=== PATIENT | male | born 1970 | race Caucasian/White ===

== ENCOUNTER 2020-12-06 02:38 | Observation (INO) | payer BC, OTHER ==
--- NOTE | 2020-12-06 03:24 | XR ---
EXAM: XR Chest, 2 Views CLINICAL HISTORY: ITS.REASON XR Reason: difficulty breathing TECHNIQUE: Frontal and lateral views of the chest. COMPARISON: 11/02/2017 FINDINGS: Lungs: Unremarkable. No consolidation. Pleural space: Unremarkable. No pneumothorax. Heart: Unremarkable. No cardiomegaly. Mediastinum: Unremarkable. Bones/joints: Unremarkable. IMPRESSION: No evidence of acute cardiopulmonary disease.
[2020-12-06 03:30] LABS: Basophils % (A) 0 %; Eosinophils # (A) 0.1 k/uL (0-0.7); Eosinophils % (A) 1 %; HCT 44.2 % (39.0-53.0); HGB 14.5 gm/dL (13.0-17.5); Lymphocytes % (A) 6 %; MCH 29.3 pg (25.0-35.0); MCHC 32.9 g/dL (31.0-37.0); MCV 89.2 fL (80.0-100.0); Mean Platelet Volume 7.3; Monocytes # (A) 0.5 k/uL (0-1.0); Monocytes % (A) 3 %; Neutrophils # (A) 13.3 k/uL (1.3-7.7); Neutrophils % (A) 89 %; Platelet Count 292 k/uL (150-450); RBC 4.96 m/uL (4.30-5.90); RDW 14.5 % (11.5-15.5); WBC 14.9 k/uL (3.8-10.6)
[2020-12-06 03:38] LABS: Potassium 3.9 mmol/L (3.5-5.1)
[2020-12-06 03:39] LABS: Albumin 4.4 g/dL (3.5-5.0); Calcium 9.9 mg/dL (8.4-10.2); Total Bilirubin 0.5 mg/dL (0.2-1.3); Total Protein 7.9 g/dL (6.3-8.2)
--- NOTE | 2020-12-06 03:48 | ED ---
SOB HPI - General Chief Complaint: Shortness of Breath Stated Complaint: anxiety Time Seen by Provider: 12/06/20 02:52 Source: patient, EMS Mode of arrival: EMS - History of Present Illness Initial Comments: This patient is a 50-year-old man who presents to be evaluated for dyspnea. The patient states that he had been watching Super Bowl then afterward said gone to leave and on entering cold air he started experiencing shortness of breath. The patient states he was feeling anxious as well and was not sure if this was anxiety or something else. He states he also had been exposed possibly to coronavirus. Finally, patient notes that he did have a THC edible, and was unce rtain of this may have caused onset of symptoms. He has not had fever or chills. No cough or congestion. No chest pain. Please see the review of systems. Patient states that he did spontaneously start to feel better after the ambulance had arrived, and he feels he is back to his baseline now. MD Complaint: shortness of breath -: minutes(s) Severity scale (1-10): 0 Consistency: now resolved Improves With: nothing Worsens With: nothing Known History Of: asthma Associated Symptoms: denies other symptoms Treatments Prior to Arrival: none - Related Data Home Oxygen Therapy: No Home Medications Medication Instructions Recorded Confirmed Albuterol Sulfate [Proair Hfa] 1 - 2 puff INHALATION RT-Q6H PRN 12/06/20 12/06/20 Budesonide/Formoterol Fumarate 1 puff INHALATION RT-BID 12/06/20 12/06/20 [Symbicort 160-4.5 Mcg Inhaler] amLODIPine BESYLATE/BENAZEPRIL 1 cap PO DAILY 12/06/20 12/06/20 [Lotrel 10-40 MG] Previous Rx's Medication Instructions Recorded Azithromycin [Zithromax] 500 mg PO HS 2 Days #2 tab 12/07/20 predniSONE [Deltasone] 40 mg PO DAILY 3 Days #6 tab 12/07/20 Allergies Allergy/AdvReac Type Severity Reaction Status Date / Time No Known Allergies Allergy Verified 12/06/20 07:00 Review of Systems ROS Statement: Those systems with pertinent positive or pertinent negative responses have been documented in the HPI. ROS Other: All systems not noted in ROS Statement are negative. Constitutional: Denies: fever, chills ENT: Denies: congestion Respiratory: Reports: dyspnea. Denies: cough, wheezes, hemoptysis Cardiovascular: Denies: chest pain, palpitations, edema, syncope Gastrointestinal: Denies: abdominal pain, vomiting, diarrhea Genitourinary: Denies: dysuria Musculoskeletal: Denies: back pain Skin: Denies: rash Neurological: Denies: headache, weakness Psychiatric: Reports: anxiety Past Medical History Past Medical History: Asthma Additional Past Medical History / Comment(s): back pain History of Any Multi-Drug Resistant Organisms: None Reported Past Surgical History: No Surgical Hx Reported Past Psychological History: No Psychological Hx Reported Smoking Status: Former smoker Past Alcohol Use History: Occasional Past Drug Use History: None Reported General Exam General appearance: alert, in no apparent distress Head exam: Present: atraumatic, normocephalic Eye exam: Present: normal appearance ENT exam: Present: normal oropharynx Neck exam: Present: normal inspection, full ROM Respiratory exam: Present: normal lung sounds bilaterally. Absent: respiratory distress, wheezes, rales, rhonchi, stridor, accessory muscle use, decreased breath sounds Cardiovascular Exam: Present: regular rate, normal rhythm, normal heart sounds. Absent: systolic murmur, diastolic murmur, rubs, gallop GI/Abdominal exam: Present: soft. Absent: distended, tenderness, guarding, rebound Extremities exam: Present: normal inspection, normal capillary refill. Absent: pedal edema, calf tenderness Back exam: Present: normal inspection. Absent: CVA tenderness (R), CVA tenderness (L) Neurological exam: Present: alert Skin exam: Present: warm, dry, intact, normal color. Absent: rash Course Vital Signs 12/06/20 12/06/20 12/06/20 02:44 02:47 04:18 Temperature 98.0 F Pulse Rate 106 H 85 Respiratory 18 18 16 Rate Blood Pressure 151/89 103/76 O2 Sat by Pulse 96 97 Oximetry 12/06/20 12/06/20 12/06/20 04:47 05:00 05:26 Temperature 97.7 F Pulse Rate 83 83 Respiratory 18 18 Rate Blood Pressure 125/86 127/75 O2 Sat by Pulse 95 93 L Oximetry Medical Decision Making - Medical Decision Making Discussed results with the patient, including the d-dimer. Patient declined to have further testing as he is feeling back at baseline with no symptoms. Again I suspect that the likelihood of PE is low given his lack of symptoms at the moment, but discussed appropriate follow-up as well as return parameters. As patient was being discharged, he found that he was becoming quite dyspneic after only 30 yards of walking. In light of this, will admit patient for telemetry monitoring, serial cardiac enzymes and cardiology consultation for possible exertional angina - Lab Data Result diagrams: 12/07/20 05:02 12/07/20 05:02 Lab Results 12/06/20 12/06/20 12/06/20 Range/Units 03:19 03:19 03:19 WBC 14.9 H (3.8-10.6) k/uL RBC 4.96 (4.30-5.90) m/uL Hgb 14.5 (13.0-17.5) gm/dL Hct 44.2 (39.0-53.0) % MCV 89.2 (80.0-100.0) fL MCH 29.3 (25.0-35.0) pg MCHC 32.9 (31.0-37.0) g/dL RDW 14.5 (11.5-15.5) % Plt Count 292 (150-450) k/uL MPV 7.3 Neutrophils % 89 % Lymphocytes % 6 % Monocytes % 3 % Eosinophils % 1 % Basophils % 0 % Neutrophils # 13.3 H (1.3-7.7) k/uL Lymphocytes # 1.0 (1.0-4.8) k/uL Monocytes # 0.5 (0-1.0) k/uL Eosinophils # 0.1 (0-0.7) k/uL Basophils # 0.0 (0-0.2) k/uL D-Dimer (<0.60) mg/L FEU Sodium 131 L (137-145) mmol/L Potassium 3.9 (3.5-5.1) mmol/L Chloride 96 L (98-107) mmol/L Carbon Dioxide 19 L (22-30) mmol/L Anion Gap 16 mmol/L BUN 20 (9-20) mg/dL Creatinine 1.14 (0.66-1.25) mg/dL Est GFR (CKD-EPI)AfAm 86 (>60 ml/min/1.73 sqM) Est GFR (CKD-EPI)NonAf 75 (>60 ml/min/1.73 sqM) Glucose 213 H (74-99) mg/dL Calcium 9.9 (8.4-10.2) mg/dL Total Bilirubin 0.5 (0.2-1.3) mg/dL AST 29 (17-59) U/L ALT 27 (4-49) U/L Alkaline Phosphatase 127 H (38-126) U/L Troponin I <0.012 (0.000-0.034) ng/mL NT-Pro-B Natriuret Pep pg/mL Total Protein 7.9 (6.3-8.2) g/dL Albumin 4.4 (3.5-5.0) g/dL Coronavirus (PCR) (Not Detected) 12/06/20 12/06/20 12/06/20 Range/Units 03:19 03:19 03:19 WBC (3.8-10.6) k/uL RBC (4.30-5.90) m/uL Hgb (13.0-17.5) gm/dL Hct (39.0-53.0) % MCV (80.0-100.0) fL MCH (25.0-35.0) pg MCHC (31.0-37.0) g/dL RDW (11.5-15.5) % Plt Count (150-450) k/uL MPV Neutrophils % % Lymphocytes % % Monocytes % % Eosinophils % % Basophils % % Neutrophils # (1.3-7.7) k/uL Lymphocytes # (1.0-4.8) k/uL Monocytes # (0-1.0) k/uL Eosinophils # (0-0.7) k/uL Basophils # (0-0.2) k/uL D-Dimer 0.64 H (<0.60) mg/L FEU Sodium (137-145) mmol/L Potassium (3.5-5.1) mmol/L Chloride (98-107) mmol/L Carbon Dioxide (22-30) mmol/L Anion Gap mmol/L BUN (9-20) mg/dL Creatinine (0.66-1.25) mg/dL Est GFR (CKD-EPI)AfAm (>60 ml/min/1.73 sqM) Est GFR (CKD-EPI)NonAf (>60 ml/min/1.73 sqM) Glucose (74-99) mg/dL Calcium (8.4-10.2) mg/dL Total Bilirubin (0.2-1.3) mg/dL AST (17-59) U/L ALT (4-49) U/L Alkaline Phosphatase (38-126) U/L Troponin I (0.000-0.034) ng/mL NT-Pro-B Natriuret Pep 48 pg/mL Total Protein (6.3-8.2) g/dL Albumin (3.5-5.0) g/dL Coronavirus (PCR) Not Detected (Not Detected) - EKG Data -: EKG Interpreted by Co EKG shows normal: sinus rhythm, axis (Normal), intervals (Normal), QRS complexes (Normal), ST-T waves (Normal) Rate: normal (Rate 91 bpm) Interpretation: other (Possible old septal infarct.) Disposition Clinical Impression: Dyspnea Disposition: ADMITTED IP TO THIS [facility] Condition: Good Is patient prescribed a controlled substance at d/c from ED?: No
[2020-12-06] MEDS ORDERED: NITROGLYCERIN SL TABS 0.4 MG TAB SUBLINGUAL PRN (04:46)
[2020-12-06] MEDS ORDERED: ENOXAPARIN 150 MG/ML SYRINGE SQ ONE (05:00)
--- NOTE | 2020-12-06 09:09 | CT ---
EXAMINATION TYPE: CT angio chest DATE OF EXAM: 12/06/2020 COMPARISON: None HISTORY: Dyspnea, elevated d-dimer, asthma CT DLP: 1055.7 mGycm CONTRAST: CT chest with contrast and 3D reconstruction with MIP imaging is performed with IV Contrast, patient injected with 100 mL of Isovue 370. Contrast-enhanced CT of the chest was performed through the course of the pulmonary arteries with rebeca g and mediastinal window settings submitted. 3D reconstruction with MIP imaging was also performed. PULMONARY ARTERIES: Examination is limited given the timing of the contrast bolus. I do not see evide nce for a large central embolus over the examination is limited with regards to tube exclusion of pul monary embolism in second third and fourth order branches. LUNGS: The lungs are clear and free of infiltrate. No evidence for atelectasis. No pulmonary nodule or mass is detected. No pleural effusion. MEDIASTINUM: Thoracic aorta is of normal caliber,however, evaluation is limited given timing of the contrast bolus. If there is concern for thoracic aortic pathology consider RICKI. Correlate clinicall y . The heart is not enlarged. No evidence for mediastinal mass. No mediastinal lymph nodes greater than 1cm. HILAR STRUCTURES: No evidence for mass. No hilar lymph nodes greater than 1 cm. UPPER ABDOMEN: No significant abnormality is seen. IMPRESSION: 1. Limited evaluation for pulmonary embolism. I do not see evidence for large central embolus at thi s time.
[2020-12-06] MEDS: amLODIPine 10 MG TAB PO SCH (09:57)
[2020-12-06] MEDS: lisinopriL 20 MG TAB PO SCH (09:57)
--- NOTE | 2020-12-06 09:58 | P.CRDCN ---
History of Present Illness History of present illness: HISTORY OF PRESENTING ILLNESS This is a pleasant 50-year-old male past medical history significant for hypertension, asthma, chronic back pain and morbid obesity. 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 We have been asked to see in consultation for shortness of breath. He states last night he had an acute onset of shortness of breath after walking outside into the cold. He described it as inability to take a deep breath. He does have asthma so he used his inhalers but was not achieving any relief. He walked upstairs to his room and his shortness of breath worsened. He states he started becoming anxious and paranoid that it was his heart and then his breathing again got worse. He denies associated chest pain, dizziness or palpitations. He does admit to taking an edible marijuana candy earlier in the evening. DIAGNOSTICS EKG reveals sinus mechanism with non-specific changes, no acute ST or T-wave abn ormalities. Telemetry tracings indicate sinus mechanism with no acute arrhythmia. Chest xray negative for an acute cardiopulmonary process. Laboratory reviewed, CBC 14.9, hemoglobin 14.5, platelets 292, d-dimer 0.64, sodium 131, potassium 3.9, creatinine 1.14, troponin negative 2, NT proBNP 48 and Covid negative. Current cardiac medications include Lodine/benazepril 10/40 mg daily. REVIEW OF SYSTEMS At the time of my exam: CONSTITUTIONAL: Denies fever or chills. CARDIOVASCULAR: Denies chest pain, shortness of breath, orthopnea, PND or palpitations. RESPIRATORY: Denies cough. GASTROINTESTINAL: Denies abdominal pain, diarrhea, constipation, nausea or vomiting. MUSCULOSKELETAL: Denies myalgias. NEUROLOGIC: Denies numbness, tingling, headacbe or weakness. ENDOCRINE: Denies fatigue, weight change, polydipsia or polyurina. GENITOURINARY: Denies burning, hematuria or urgency with micturation. HEMATOLOGIC: Denies history of anemia or bleeding. PHYSICAL EXAMINATION Blood pressure 176/95 heart rate 94 afebrile and maintaining oxygen saturation on room air. CONSTITUTIONAL: No apparent distress. HEENT: Head is normocephalic. Pupils are equal, round. Sclerae anicteric. Mucous membranes of the mouth are moist. No JVD. No carotid bruit. CHEST EXAMINATION: Lungs are clear to auscultation. No chest wall tenderness is noted on palpation or with deep breathing. HEART EXAMINATION: Regular rate and rhythm. S1, S2 heard. Soft systolic ejection murmur at the base, no gallops or rub. ABDOMEN: Soft, nontender. Positive bowel sounds. EXTREMITIES: 2+ peripheral pulses, no lower extremity edema and no calf tenderness. NEUROLOGIC EXAMINATION: Patient is awake, alert and oriented x3. ASSESSMENT Shortness of breath Leukocytosis Hypertension Asthma Morbid obesity, BMI 40 Marijuana use PLAN An acute coronary event has been ruled out. CTA negative for PE. Obtain 2D echocardiogram and doppler study to assess cardiac structure and function. If echo is normal he can be discharged from a cardiac perspective. Marijuana cessation recommended. Follow up with Dr. Thomas in the office and will consider outpatient stress testing. Thank you kindly for this consultation. Nurse Practitioner note has been reviewed, I agree with a documented findings and plan of care. Patient was seen and examined. 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 Past Drug Use History: None Reported Medications and Allergies Home Medications Medication Instructions Recorded Confirmed Type Albuterol Sulfate [Proair Hfa] 1 - 2 puff INHALATION RT-Q6H PRN 12/06/20 12/06/20 History Symbicort Unknown Dose 1 puff INHALATION RT-BID 12/06/20 12/06/20 History amLODIPine BESYLATE/BENAZEPRIL 1 cap PO DAILY 12/06/20 12/06/20 History [Lotrel 10-40 MG] Allergies Allergy/AdvReac Type Severity Reaction Status Date / Time No Known Allergies Allergy Verified 12/06/20 07:00 Physical Exam Vitals: Vital Signs Temp Pulse Pulse Resp BP BP Pulse Ox 12/06/20 08:43 97.5 F L 94 20 176/95 92 L 12/06/20 08:00 94 20 12/06/20 05:26 97.7 F 12/06/20 05:00 83 18 127/75 93 L 12/06/20 04:47 83 18 125/86 95 12/06/20 04:18 85 16 103/76 97 12/06/20 02:47 18 12/06/20 02:44 98.0 F 106 H 18 151/89 96 Intake and Output 12/05/20 12/06/20 12/06/20 22:59 06:59 14:59 Other: Voiding Method Toilet # Voids 1 Weight 136.078 kg 136.078 kg Results 12/06/20 03:19 12/06/20 03:19 Cardiac Enzymes 12/06/20 12/06/20 12/06/20 Range/Units 03:19 03:19 07:36 AST 29 (17-59) U/L Troponin I <0.012 <0.012 (0.000-0.034) ng/mL CBC 12/06/20 Range/Units 03:19 WBC 14.9 H (3.8-10.6) k/uL RBC 4.96 (4.30-5.90) m/uL Hgb 14.5 (13.0-17.5) gm/dL Hct 44.2 (39.0-53.0) % Plt Count 292 (150-450) k/uL Comprehensive Metabolic Panel 12/06/20 Range/Units 03:19 Sodium 131 L (137-145) mmol/L Potassium 3.9 (3.5-5.1) mmol/L Chloride 96 L (98-107) mmol/L Carbon Dioxide 19 L (22-30) mmol/L BUN 20 (9-20) mg/dL Creatinine 1.14 (0.66-1.25) mg/dL Glucose 213 H (74-99) mg/dL Calcium 9.9 (8.4-10.2) mg/dL AST 29 (17-59) U/L ALT 27 (4-49) U/L Alkaline Phosphatase 127 H (38-126) U/L Total Protein 7.9 (6.3-8.2) g/dL Albumin 4.4 (3.5-5.0) g/dL Current Medications Generic Name Dose Route Start Last Admin Trade Name Freq PRN Reason Stop Dose Admin Aspirin 81 mg 12/07/20 09:00 Aspirin 81 Mg PO DAILY [facility] Enoxaparin Sodium 140 mg 12/06/20 17:00 Enoxaparin 150 Mg/Ml Syringe SQ Q12H EILEEN Nitroglycerin 0.4 mg 12/06/20 04:46 Nitroglycerin Sl Tabs 0.4 Mg Tab SUBLINGUAL Q5M PRN Chest Pain Non-Formulary Medication 1 cap 12/06/20 09:30 Amlodipine Besylate/Benazepril [Lotrel 10-40 Mg] PO DAILY EILEEN Intake and Output 12/05/20 12/06/20 12/06/20 22:59 06:59 14:59 Other: Voiding Method Toilet # Voids 1 Weight 136.078 kg 136.078 kg Patient Weight 12/07/20 06:59 Weight 136.078 kg 12/06/20 03:19 12/06/20 03:19
--- NOTE | 2020-12-06 11:37 | ECHOF ---
Referral Reason:Dyspnea on exertion MEASUREMENTS -------- HEIGHT: 182.9 cm WEIGHT: 136.1 kg BP: 127/75 RVIDd: 3.7 cm (< 3.3) IVSd: 2.2 cm (0.6 - 1.1) LVIDd: 4.8 cm (3.9 - 5.3) LVPWd: 1.4 cm (0.6 - 1.1) IVSs: 2.5 cm LVIDs: 3.1 cm LVPWs: 1.8 cm LAESV Index (A-L): 47.32 ml/m Ao Diam: 3.6 cm (2.0 - 3.7) AV Cusp: 2.4 cm (1.5 - 2.6) LA Diam: 5.0 cm (2.7 - 3.8) MV E Jean Marie: 0.81 m/s MV DecT: 215 ms MV A Jean Marie: 0.70 m/s MV E/A Ratio: 1.16 RAP: 5.00 mmHg RVSP: 43.62 mmHg FINDINGS -------- Sinus rhythm. This was a technically difficult study with suboptimal views. The left ventricular size is normal. There is severe concentric left ventricular hypertrophy. Ove rall left ventricular systolic function is normal with, an EF between 55 - 60 %. The right ventricle is mild to moderately enlarged. LA is severely dilated >40 ml/m2 The right atrium was not well visualized. 5.0mg of Lumason was utilized for enhancement of images Interatrial and interventricular septum intact. The aortic valve was not well visualized. There is no evidence of aortic regurgitation. There is no evidence of aortic stenosis. The mitral valve is normal. Mild mitral regurgitation is present. [id number] tricuspid regurgitation present. There is mild pulmonary hypertension. The right ventricular systolic pressure, as measured by Doppler, is 43.62mmHg. The pulmonic valve was not well visualized. There is no pulmonic regurgitation present. The aortic root size is normal. IVC Not well visulized. There is no pericardial effusion. CONCLUSIONS -------- 1. This was a technically difficult study with suboptimal views. 2. There is severe concentric left ventricular hypertrophy. 3. Overall left ventricular systolic function is normal with, an EF between 55 - 60 %. 4. The right ventricle is mild to moderately enlarged. 5. LA is severely dilated >40 ml/m2 6. The aortic valve was not well visualized. 7. Mild mitral regurgitation is present. 8. [id number]-[id number] tricuspid regurgitation present. 9. There is mild pulmonary hypertension. COTTON HEADER: Alisha Luna RDCS
[2020-12-06 13:49] VITALS: RESP 16
[2020-12-06] MEDS: ALBUTEROL NEBULIZED 2.5 MG/3 ML INHALATION SCH ×4 (15:26→19:09)
[2020-12-06 16:45] LABS: Glucose,Whole Blood 102 mg/dL (75-99)
[2020-12-06] MEDS: predniSONE 20 MG TAB PO SCH (16:52)
[2020-12-06] MEDS: INSULIN ASPART (NovoLOG) 100 UNIT/ML VIAL SQ SCH ×2 (16:53→20:21)
[2020-12-06] MEDS ORDERED: ENOXAPARIN 150 MG/ML SYRINGE SQ SCH (17:00)
[2020-12-06] MEDS: SYMBICORT 160-4.5 MCG INHALER INHALATION SCH (19:13)
[2020-12-06 20:22] LABS: Glucose,Whole Blood 140 mg/dL (75-99)
[2020-12-06] MEDS ORDERED: AZITHROMYCIN 500 MG TAB PO SCH (21:00)
--- NOTE | 2020-12-06 21:02 | P.HPIM ---
History of Present Illness H&P Date: 12/06/20 Chief Complaint: SOB Patient is a 50-year-old male with a known history of hypertension, asthma with recent methylprednisolone injection and morbid obesity with BMI 40.7 and m arijuana use presents to ER presents to ER with the complaints of shortness of breath. Patient had been watching Super Bowl and then after that, walk in the cold air and suddenly felt increased short of breath. Patient also anxious and felt like panic attack. Patient also thinks that he was exposed to COVID-19 viral infection. Patient was also using marijuana and felt very anxious and decided to come to ER. Patient does cough with light yellow sputum production. No fever no chills. No chest pain. Chest x-ray showed no evidence of acute pulmonary disease CT angiogram showed no evidence of pulmonary embolism the large arteries. EKG showed normal sinus rhythm Laboratory test showed WBC 14.9, hemoglobin 14.5 and platelets 292 D-dimer level is 0.64 Sodium 131, potassium 3.9, chloride 96, bicarb is 19, BUN 20 and creatinine 1.14 Blood sugar is 213 Liver enzymes are not elevated and alk phos is 127 Troponin x3 - and proBNP 48 and coronavirus PCR is negative. Review of Systems Constitutional: Patient denies any fever or chills . No generalized weakness or weight loss. Abdomen: Patient denied nausea vomiting and diarrhea and abdominal pain. Cardiovascular: Patient denies any chest pain or short of breath no palpitations. Respiratory:Patient does have cough with light yellow sputum production and shortness of breath. Neurologic: Patient denied any numbness or tingling headache. Musculoskeletal: Patient denies any complaints of joint swelling or deformity. Skin: Negative Psychiatric: Negative Endocrine: No heat or cold intolerance. No recent weight gain. Genitourinary: No dysuria or hematuria. 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 Past Drug Use History: None Reported Medications and Allergies Home Medications Medication Instructions Recorded Confirmed Type Albuterol Sulfate [Proair Hfa] 1 - 2 puff INHALATION RT-Q6H PRN 12/06/20 12/06/20 History Budesonide/Formoterol Fumarate 1 puff INHALATION RT-BID 12/06/20 12/06/20 History [Symbicort 160-4.5 Mcg Inhaler] amLODIPine BESYLATE/BENAZEPRIL 1 cap PO DAILY 12/06/20 12/06/20 History [Lotrel 10-40 MG] Allergies Allergy/AdvReac Type Severity Reaction Status Date / Time No Known Allergies Allergy Verified 12/06/20 07:00 Physical Exam Vitals: Vital Signs Temp Pulse Pulse Resp BP BP Pulse Ox 12/06/20 11:48 171/100 12/06/20 08:43 97.5 F L 94 20 176/95 92 L 12/06/20 08:00 94 20 12/06/20 05:26 97.7 F 12/06/20 05:00 83 18 127/75 93 L 12/06/20 04:47 83 18 125/86 95 12/06/20 04:18 85 16 103/76 97 12/06/20 02:47 18 12/06/20 02:44 98.0 F 106 H 18 151/89 96 Intake and Output 12/05/20 12/06/20 12/06/20 22:59 06:59 14:59 Other: Voiding Method Toilet # Voids 1 Weight 136.078 kg 136.078 kg PHYSICAL EXAMINATION: Patient is lying in the bed comfortably, no acute distress, awake alert and oriented.. HEENT: Normocephalic. Neck is supple. Pupils reactive. Nostrils clear. Oral cavity is moist. Ears reveal no drainage. Neck reveals no JVD, carotid bruits, or thyromegaly. CHEST EXAMINATION: Trachea is central. Symmetrical expansion. Mild expiratory wheeze at diminished basilar air entry.. CARDIAC: Normal S1, S2 with no gallops. No murmurs ABDOMEN: Soft. Bowel sounds normal. No organomegaly. No abdominal bruits. Extremities: reveal no edema. No clubbing or cyanosis Neurologically awake, alert, oriented x3 with well-coordinated movements. No focal deficits noted Skin: No rash or skin lesions. Psychiatric: Coperative. Nonsuicidal Musculoskeletal: No joint swelling or deformity. Normal range of motion. Results CBC & Chem 7: 12/06/20 03:19 12/06/20 03:19 Labs: Abnormal Lab Results - Last 24 Hours (Table) 12/06/20 12/06/20 12/06/20 Range/Units 03:19 03:19 03:19 WBC 14.9 H (3.8-10.6) k/uL Neutrophils # 13.3 H (1.3-7.7) k/uL D-Dimer 0.64 H (<0.60) mg/L FEU Sodium 131 L (137-145) mmol/L Chloride 96 L (98-107) mmol/L Carbon Dioxide 19 L (22-30) mmol/L Glucose 213 H (74-99) mg/dL Alkaline Phosphatase 127 H (38-126) U/L Thrombosis Risk Factor Assmnt - DVT/VTE Prophylaxis DVT/VTE Prophylaxis: Pharmacologic Prophylaxis ordered - Choose All That Apply Any of the Below Risk Factors Present?: Yes Each Factor Represents 1 point: Age 41-60 years, Obesity (BMI >25) Other Risk Factors: No Other congenital or acquired thrombophilia - If yes, enter type in comment: No Thrombosis Risk Factor Assessment Total Risk Factor Score: 2 Thrombosis Risk Factor Assessment Level: Low Risk Assessment and Plan Assessment: Shortness of breath secondary to acute asthma exacerbation due to sudden exposure to cold weather. Possible acute bronchitis Leukocytosis likely due to above versus reactive. Hypertension Marijuana use Morbid obesity BMI 40.7 DVT prophylaxis Plan: Patient will be continued on DuoNebs and Symbicort. Will add redness on 40 mg daily for 5 days and antibiotics in the form of azithromycin. Patient was initially suspected pulmonary embolism and was started on therapeutic anticoagulation. CTA is negative for PE and will change anticoagulation to prophylactic dose. Cardiology was consulted and 2D echocardiogram was ordered. Currently patient is symptomatically improving. Continue to follow in the 24 hours and further recommendations based on the clinical course. Marijuana cessation has been counseled extensively. Time with Patient: Greater than 30
[2020-12-07] MEDS: ALBUTEROL NEBULIZED 2.5 MG/3 ML INHALATION SCH ×3 (00:08→11:13)
[2020-12-07 07:19] LABS: Glucose,Whole Blood 109 mg/dL (75-99)
[2020-12-07] MEDS: INSULIN ASPART (NovoLOG) 100 UNIT/ML VIAL SQ SCH ×2 (07:19→12:59)
[2020-12-07] MEDS: lisinopriL 20 MG TAB PO SCH (07:19)
[2020-12-07] MEDS: amLODIPine 10 MG TAB PO SCH (07:19)
[2020-12-07] MEDS: predniSONE 20 MG TAB PO SCH (07:20)
[2020-12-07] MEDS: SYMBICORT 160-4.5 MCG INHALER INHALATION SCH (07:33)
[2020-12-07 08:46] VITALS: BP 151/94; PULSE 92; TEMP 98
[2020-12-07] MEDS ORDERED: ASPIRIN 81 MG PO SCH (09:00)
[2020-12-07] MEDS ORDERED: ASPIRIN 325 MG TAB PO SCH (09:00)
[2020-12-07] MEDS ORDERED: ENOXAPARIN 40 MG/0.4 ML SYRINGE SQ SCH (09:00)
[2020-12-07 09:34] LABS: Basophils # (A) 0.02 X 10*3/uL (0.00-0.10); Basophils % (A) 0.2 %; Eosinophils # (A) 0.02 X 10*3/uL (0.04-0.35); Eosinophils % (A) 0.2 %; HGB 14.6 g/dL (13.0-17.0); Lymphocytes # (A) 1.48 X 10*3/uL (0.90-5.00); MCH 29.8 pg (27.0-32.0); MCHC 33.2 g/dL (32.0-37.0); MCV 89.8 fL (80.0-97.0); Mean Platelet Volume 10.4 fL (9.5-12.2); Monocytes # (A) 0.49 X 10*3/uL (0.20-1.00); Monocytes % (A) 5.3 %; Neutrophils # (A) 7.19 X 10*3/uL (1.80-7.70); Neutrophils % (A) 77.5 %; Platelet Count 301 X 10*3/uL (140-440); RDW 14.1 % (11.5-14.5); WBC 9.27 X 10*3/uL (4.50-10.00)
--- NOTE | 2020-12-07 10:08 | P.PN ---
Subjective HISTORY OF PRESENTING ILLNESS This is a pleasant 50-year-old male past medical history significant for hypertension, asthma, chronic back pain and morbid obesity. 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 He is seen and examined sitting up in bed in no acute distress. He states overall his breathing is improved since admission. He has been initiated on antibiotics and oral steroid taper per the primary care team. He is being treated for asthma and bronchitis. Echocardiogram obtained revealed preserved LV systolic function ejection fraction 55-60% with no evidence of wall motion abnormality, mild to moderately enlarged right ventricle, severely dilated left atrium, mild to moderate tricuspid regurgitation and mild pulmonary hypertension with an RVSP of 43 mmHg. Blood pressure 151/94 heart rate 92 afebrile maintaining oxygen saturation on room air. Laboratory data reviewed, CBC unremarkable. PHYSICAL EXAMINATION CONSTITUTIONAL: No apparent distress. HEENT: Head is normocephalic. Pupils are equal, round. Sclerae anicteric. Mucous membranes of the mouth are moist. No JVD. No carotid bruit. CHEST EXAMINATION: Lungs are clear to auscultation. No chest wall tenderness is noted on palpation or with deep breathing. HEART EXAMINATION: Regular rate and rhythm. S1, S2 heard. Soft systolic ejection murmur at the base, no gallops or rub. EXTREMITIES: 2+ peripheral pulses, no lower extremity edema and no calf tenderness. ASSESSMENT Shortness of breath Leukocytosis Hypertension Asthma Morbid obesity, BMI 40 Marijuana use PLAN Recommend outpatient sleep study. Stable from a cardiac perspective. Follow-up in the office with Dr. Thomas in 2 weeks for further outpatient stress testing. Nurse Practitioner note has been reviewed, I agree with a documented findings and plan of care. Patient was seen and examined. Objective - Vital Signs Vital signs: Vital Signs Temp 98.0 F 12/07/20 07:16 Pulse 92 12/07/20 08:00 Resp 16 12/07/20 08:00 BP 151/94 12/07/20 07:16 Pulse Ox 97 12/07/20 07:34 Intake & Output 12/06/20 12/07/20 12/07/20 18:59 06:59 18:59 Weight 136.078 kg Other: Voiding Method Toilet Toilet Toilet # Voids 4 - Labs CBC & Chem 7: 12/07/20 05:02 12/06/20 03:19 Labs: Abnormal Lab Results - Last 24 Hours (Table) 12/06/20 12/06/20 12/07/20 Range/Units 16:44 20:20 05:02 Immature Gran # 0.07 H (0.00-0.04) X 10*3/uL Eosinophils # 0.02 L (0.04-0.35) X 10*3/uL POC Glucose (mg/dL) 102 H 140 H (75-99) mg/dL 12/07/20 Range/Units 07:18 Immature Gran # (0.00-0.04) X 10*3/uL Eosinophils # (0.04-0.35) X 10*3/uL POC Glucose (mg/dL) 109 H (75-99) mg/dL
[2020-12-07 11:01] LABS: African American GFR (CKD) 80.7 (60.0-200.0); Anion Gap 10.6 mmol/L (4.00-12.00); BUN/Creat Ratio 12.5 Ratio (12.00-20.00); Calcium 9.5 mg/dL (8.7-10.3); Carbon Dioxide 25.4 mmol/L (21.6-31.8); Chol/HDL Ratio 5.95; LDL Cholesterol,Calculated 175.6 mg/dL (0.0-131.0); Non-African American GFR(CKD) 69.6 (60.0-200.0); Potassium 4.5 mmol/L (3.5-5.5); VLDL Calculation 32.4 mg/dL (5.00-40.00)
[2020-12-07 11:49] LABS: Glucose,Whole Blood 134 mg/dL (75-99)
== END 2020-12-07 12:59 | disposition home or self-care (01) ==
LOC: EC 02:38 → SUPCPDRO 02:38 → 6NMEDSUR 04:47
PROVIDERS: ADMIT Internal Medicine; ATTEND Internal Medicine
DX: J45.901 Unspecified asthma with (acute) exacerbation (principal); D72.829 Elevated white blood cell count, unspecified; I10 Essential (primary) hypertension; E66.01 Morbid (severe) obesity due to excess calories; Z68.41 Body mass index [BMI] 40.0-44.9, adult; R41.9 Unspecified symptoms and signs involving cognitive functions and awareness; G89.29 Other chronic pain; M54.9 Dorsalgia, unspecified; F41.9 Anxiety disorder, unspecified; Z87.891 Personal history of nicotine dependence; Z20.822 Contact with and (suspected) exposure to COVID-19; Z77.22 Contact with and (suspected) exposure to environmental tobacco smoke (acute) (chronic); Z79.51 Long term (current) use of inhaled steroids; Z79.899 Other long term (current) drug therapy
CPT/HCPCS: 96372 ×2; 93005 ×2; 99285; 36415; 94640 ×4; 94760; 93306; 85379 ×2; 83880; 80061; 80053; 80048; 84484; 85025 ×2; 87635; 71046; 71275; G0378 ×2; U0003; U0005; J1650 ×2; J7512 ×2; Q9950; Q9967